=== PATIENT | female | born 1965 | race Caucasian/White ===

== ENCOUNTER 2018-03-22 08:49 | Observation (INO) | payer OTHER ==
[~2018-03-22] VITALS: Ht 165.1 cm; Wt 100.0 kg
[~2018-03-22 08:49] MED LIST: ALBU8.5H5 INH; ALPR-475 PO; ATOR40TA PO; DILT360C PO; HYDR25TA6 PO; LEVO750T6 PO; LOSA100T7 PO; MULT-6 PO; ZOLP-413 PO
[2018-03-22] MEDS ORDERED: ASPI-515 PO (09:06)
[2018-03-22] MEDS ORDERED: FENO145T30 PO (09:06)
[2018-03-22 10:08] LABS: BASOPHILS # (AUTO) 0.14 x10^3/uL (0-0.1); BASOPHILS % (AUTO) 2 % (0-1); EOSINOPHILS # (AUTO) 0.17 x10^3/uL (0-0.4); EOSINOPHILS % (AUTO) 2 % (1-7); LYMPHOCYTES # (AUTO) 2.73 x10^3/uL (1-3.4); LYMPHOCYTES % (AUTO) 36 % (22-44); MD NO; MEAN CORPUSCULAR HEMOGLOBIN 29.5 pg (27.0-34.8); MEAN CORPUSCULAR HGB CONC 33.2 g/dL (32.4-35.8); MEAN CORPUSCULAR VOLUME 88.7 fL (80-100); MEAN PLATELET VOLUME 7.4 fL (7.4-10.4); MONOCYTES # (AUTO) 0.47 x10^3/uL (0.2-0.8); MONOCYTES % (AUTO) 6 % (2-9); NEUTROPHILS # (AUTO) 4.11 x10^3/uL (1.8-6.8); NEUTROPHILS % (AUTO) 54 % (42-75); PLATELET COUNT 509 x10^3/uL (130-400); RED BLOOD COUNT 4.54 x10^6/uL (3.82-5.3); RED CELL DISTRIBUTION WIDTH 13.2 % (9.6-15.2)
[2018-03-22 10:17] LABS: ALBUMIN 4.1 g/dL (3.4-5.0); ANION GAP 8 mmol/L (5-15); CALCIUM 8.8 mg/dL (8.5-10.1); CHLORIDE 100 mmol/L (98-107); CREATININE 0.66 mg/dL (0.55-1.02)
[2018-03-22 10:22] LABS: TROPONIN I < 0.015 ng/mL (0.000-0.045)
[2018-03-22] MEDS ORDERED: maalox/diphenh/lido/sucralfate 5 ML PO PRN (10:30)
[2018-03-22] MEDS ORDERED: SODIUM CHLORIDE 0.9% 1,000ML IVBOLUS ONE (10:30)
[2018-03-22 12:38] VITALS: BP 124/79
[2018-03-22] MEDS ORDERED: OMEP20TA9 PO (13:29)
[2018-03-22] MEDS ORDERED: ONDANSETRON 2MG/ML, 2ML IVPush PRN (14:30)
[2018-03-22] MEDS ORDERED: NITROGLYCERIN 0.4 MG BOTTLE (25 TABS) SL PRN (14:30)
[2018-03-22] MEDS ORDERED: METHOCARBAMOL 500 MG TABLET PO ONE (14:30)
[2018-03-22] MEDS ORDERED: NITROGLYCERIN 0.4 MG/SPRAY SL PRN (14:30)
[2018-03-22] MEDS ORDERED: ONDANSETRON ODT 4 MG PO PRN (14:30)
[2018-03-22] MEDS ORDERED: ZOLPIDEM 5MG TABLET PO PRN (14:30)
[2018-03-22] MEDS ORDERED: ACETAMINOPHEN 325 MG TABLET PO PRN (14:30)
[2018-03-22] MEDS ORDERED: MORPHINE SULFATE 4 MG/ML, 1ML IVPush PRN (14:30)
[2018-03-22 15:17] LABS: HEMOGLOBIN A1C 6.1 % (4.2-6.3)
[2018-03-22] MEDS: ENOXAPARIN 40 MG/0.4 ML SQ SCH (15:35)
[2018-03-22] MEDS: KETOROLAC 30 MG/1 ML IV PRN ×2 (15:42→22:16)
[2018-03-22 15:53] LABS: TROPONIN I < 0.015 ng/mL (0.000-0.045)
[2018-03-22] MEDS: OMEPRAZOLE 20 MG CAPSULE.DR PO SCH (17:26)
[2018-03-22 18:50] LABS: TROPONIN I < 0.015 ng/mL (0.000-0.045)
[2018-03-22 19:55] VITALS: BP 126/76
[2018-03-22] MEDS ORDERED: METHOCARBAMOL 750 MG TABLET PO PRN (21:00)
[2018-03-22] MEDS ORDERED: ATORVASTATIN 40 MG TABLET PO SCH (21:00)
[2018-03-23 01:04] VITALS: BP 107/68
[2018-03-23 05:35] LABS: CHLORIDE 99 mmol/L (98-107)
[2018-03-23 05:43] LABS: ALANINE AMINOTRANSFERASE 45 U/L (12-78); ALBUMIN 3.4 g/dL (3.4-5.0); ALKALINE PHOSPHATASE 36 U/L (45-117); ANION GAP 10 mmol/L (5-15); BILIRUBIN,TOTAL 0.3 mg/dL (0.2-1.0); CALCIUM 8.6 mg/dL (8.5-10.1); CHOL/HDL RATIO 2.4; CHOLESTEROL, TOTAL 144 mg/dL (140-239); CREATININE 0.59 mg/dL (0.55-1.02); HDL CHOL % 41 % (28-40); HDL CHOLESTEROL (DIRECT) 59 mg/dL (40-60); LDL CHOLESTEROL,CALCULATED 45 mg/dL (54-169); TOTAL PROTEIN 6.8 g/dL (6.4-8.2); TRIGLYCERIDES 202 mg/dL (50-200); VLDL CHOLESTEROL 40 mg/dL (0-25)
[2018-03-23 05:44] LABS: BASOPHILS # (AUTO) 0.04 x10^3/uL (0-0.1); BASOPHILS % (AUTO) 1 % (0-1); EOSINOPHILS # (AUTO) 0.19 x10^3/uL (0-0.4); EOSINOPHILS % (AUTO) 3 % (1-7); LDL/HDL RATIO 0.8 (0.5-3.0); LYMPHOCYTES # (AUTO) 2.43 x10^3/uL (1-3.4); LYMPHOCYTES % (AUTO) 44 % (22-44); MD NO; MEAN CORPUSCULAR HEMOGLOBIN 30.5 pg (27.0-34.8); MEAN CORPUSCULAR HGB CONC 34.2 g/dL (32.4-35.8); MEAN PLATELET VOLUME 7.5 fL (7.4-10.4); MONOCYTES # (AUTO) 0.41 x10^3/uL (0.2-0.8); MONOCYTES % (AUTO) 7 % (2-9); NEUTROPHILS # (AUTO) 2.49 x10^3/uL (1.8-6.8); NEUTROPHILS % (AUTO) 45 % (42-75); PLATELET COUNT 469 x10^3/uL (130-400); RED BLOOD COUNT 4.34 x10^6/uL (3.82-5.3); RED CELL DISTRIBUTION WIDTH 13.5 % (9.6-15.2)
[2018-03-23] MEDS: KETOROLAC 30 MG/1 ML IV PRN ×2 (06:12→12:05)
[2018-03-23] MEDS ORDERED: REGADENOSON 0.4 MG/5 ML SYRINGE ONE (07:38)
[2018-03-23 07:45] VITALS: BP 122/79
[2018-03-23] MEDS: OMEPRAZOLE 20 MG CAPSULE.DR PO SCH (07:56)
[2018-03-23] MEDS ORDERED: POTASSIUM CHLORIDE 20 MEQ TAB.ER.PRT PO SCH (08:00)
[2018-03-23] MEDS ORDERED: FENOFIBRATE 145 MG TABLET PO SCH (09:00)
[2018-03-23] MEDS ORDERED: ASPIRIN 81 MG TABLET EC PO SCH (09:00)
[2018-03-23] MEDS ORDERED: MULTIVITAMIN 1 TABLET PO SCH (09:00)
[2018-03-23] MEDS ORDERED: DILTIAZEM CD 180 MG CAP.ER.24H PO SCH (09:00)
[2018-03-23] MEDS ORDERED: LOSARTAN 50MG TABLET PO SCH (09:00)
[2018-03-23 13:15] VITALS: BP 113/73
[2018-03-23] MEDS ORDERED: METH750T2 PO (13:20)
[2018-03-23] MEDS ORDERED: IBUP-1222 PO ×3 (13:20→13:24)
[2018-03-23] MEDS: ENOXAPARIN 40 MG/0.4 ML SQ SCH (14:30)
== END 2018-03-23 14:00 | disposition home or self-care (01) ==
LOC: ED 11:50 → INTOOBSV 11:53 → EDIP 11:53 → 5SO 12:36
PROVIDERS: ADMIT Internal Medicine; ATTEND Internal Medicine
DX: R07.89 Other chest pain (principal); I10 Essential (primary) hypertension; E78.5 Hyperlipidemia, unspecified; J45.909 Unspecified asthma, uncomplicated; E87.1 Hypo-osmolality and hyponatremia; F41.9 Anxiety disorder, unspecified; G47.00 Insomnia, unspecified; D47.3 Essential (hemorrhagic) thrombocythemia; E87.6 Hypokalemia; E74.39 Other disorders of intestinal carbohydrate absorption
CPT/HCPCS: 36415; 71045; 78452; 80048; 80053; 80061; 82040; 83036; 83690; 83880; 84443; 84484; 85025; 85379; 93005; 93017; 96372; 96374; 96376; 99284; A9502; C9898; G0378; J1650; J1885; J2785

== ENCOUNTER 2020-12-05 08:23 | Outpatient (CLI) | payer OTHER ==
[~2020-12-05 08:23] MED LIST changes: -ALPR-475 PO; +ALPR0.5T7 PO; +ASPI-963 PO; +FENO145T19 PO; +IBUP-1222 PO; +LOSA100T14 PO; -LOSA100T7 PO; +METH-640 PO; +OMEP20TA9 PO
[2020-12-05 08:41] LABS: BASOPHILS % (AUTO) 1 % (0-1); EOSINOPHILS % (AUTO) 0 % (1-7); LYMPHOCYTES % (AUTO) 48 % (22-44); MEAN CORPUSCULAR HEMOGLOBIN 30.5 pg (27.0-34.8); MEAN CORPUSCULAR HGB CONC 33.9 g/dL (32.4-35.8); MEAN PLATELET VOLUME 6.7 fL (7.4-10.4); MONOCYTES % (AUTO) 7 % (2-9); NEUTROPHILS % (AUTO) 45 % (42-75); PLATELET COUNT 441 x10^3/uL (130-400); RED BLOOD COUNT 4.36 x10^6/uL (3.82-5.3); RED CELL DISTRIBUTION WIDTH 12.9 % (9.6-15.2)
[2020-12-05 08:49] LABS: ALANINE AMINOTRANSFERASE 32 U/L (12-78); ALBUMIN 3.6 g/dL (3.4-5.0); ANION GAP 5 mmol/L (5-15); CALCIUM 8.5 mg/dL (8.5-10.1); CHLORIDE 106 mmol/L (98-107)
[2020-12-05 08:58] LABS: ALKALINE PHOSPHATASE 41 U/L (45-117); BILIRUBIN,TOTAL 0.3 mg/dL (0.2-1.0); CHOL/HDL RATIO 3.3; CHOLESTEROL, TOTAL 222 mg/dL (140-239); FREE T4 (FREE THYROXINE) 0.86 ng/dL (0.76-1.46); HDL CHOL % 31 % (28-40); HDL CHOLESTEROL (DIRECT) 68 mg/dL (40-60); LDL CHOLESTEROL,CALCULATED 128 mg/dL (54-169); LDL/HDL RATIO 1.9 (0.5-3.0); TOTAL PROTEIN 7.5 g/dL (6.4-8.2); TRIGLYCERIDES 131 mg/dL (50-200); VLDL CHOLESTEROL 26 mg/dL (0-25)
== END 2020-12-05 23:59 | disposition home or self-care (01) ==
LOC: LAB 08:23
PROVIDERS: ATTEND Internal Medicine
DX: I10 Essential (primary) hypertension (principal); E78.2 Mixed hyperlipidemia
CPT/HCPCS: 36415; 80053; 80061; 82306; 84439; 84443; 85025